=== PATIENT | female | born 1975 | race African-American/Black ===

== ENCOUNTER 2025-05-25 11:41 | Observation (INO) | payer OTHER ==
[2025-05-25] MEDS ORDERED: ACETAMINOPHEN INJECTION 100 ML ONE (13:28)
[2025-05-25] MEDS: SODIUM CHLORIDE 0.9% 500 ML INFUS.BAG IV ONE ×4 (13:57→19:34)
[2025-05-25] MEDS: ACETAMINOPHEN 1000 MG/100 ML BAG IVPB ONE (13:57)
[2025-05-25 14:01] LABS: ABSOLUTE IMMATURE GRANULOCYTES 0.01 x10^3/uL (0.0-0.031); BASOPHILS # 0.05 x10^3/uL (0.01-0.08); EOSINOPHIL % 0.0 % (0.7-5.8); EOSINOPHILS # 0.00 x10^3/uL (0.04-0.36); MCHC 33.7 g/dl (32.2-35.5); MEAN CELL VOLUME 101.9 fl (79.4-94.8); MEAN PLT VOLUME 9.6 fl (9.4-12.3); MONOCYTE # 0.45 x10^3/uL (0.24-0.86); MONOCYTE % 13.0 % (4.7-12.5); RDW 12.0 % (12.2-17.1)
[2025-05-25 14:20] LABS: GLUCOSE,RANDOM 62.0 mg/dL (74-106); TOT PROT 7.2 g/dl (6.4-8.2)
[2025-05-25 14:21] LABS: CO2 20.0 mmol/L (21-32)
[2025-05-25 14:23] LABS: ALK PHOS 146.0 U/L (40-150)
[2025-05-25 14:25] LABS: SGPT/ALT 41.0 U/L (0-55)
[2025-05-25 14:26] LABS: CREATININE 0.6 mg/dL (0.55-1.3); SGOT/AST 141.0 U/L (5-34)
[2025-05-25 16:38] LABS: BG HCT 42.0 % (32.4-45.2); VENOUS BASE EXCESS -2.7 mmol/L (-2-2); VENOUS O2 SATURATION 78.2 % (70-80); VENOUS PCO2 35.2 mmHg (38-52); VENOUS PH 7.402 (7.310-7.410)
[2025-05-25 17:08] LABS: GLUCOSE,RANDOM 156.0 mg/dL (74-106)
[2025-05-25 17:10] LABS: CO2 19.0 mmol/L (21-32)
[2025-05-25 17:14] LABS: CREATININE 0.7 mg/dL (0.55-1.3); LACTIC ACID 2.9 mmol/L (0.4-2.0)
[2025-05-25 18:10] LABS: EPI CELLS >36 /uL (0-25.1); HYALINE CASTS 6 /uL (0-3.1); URINE APPEARANCE CLOUDY; URINE BACTERIA 2611 /uL (0-1359); URINE BILIRUBIN NEGATIVE (NEGATIVE); URINE COLOR DK YELLOW; URINE GLUCOSE (UA) NEGATIVE (NEGATIVE); URINE KETONE 3+ (NEGATIVE); URINE LEUK ESTERASE TRACE (NEGATIVE); URINE NITRITE NEGATIVE (NEGATIVE); URINE PROTEIN 1+ (NEGATIVE); URINE RBC 35 /uL (0-23.9); URINE UROBILINOGEN 1.0 mg/dL (0.2-1.0); URINE WBC 50 /uL (0-25.8)
[2025-05-25 18:11] LABS: HCG,QUALITATIVE URINE Negative
[2025-05-25 18:57] LABS: LACTIC ACID 2.9 mmol/L (0.4-2.0)
[2025-05-25 22:07] LABS: LACTIC ACID 2.7 mmol/L (0.4-2.0)
[2025-05-25] MEDS ORDERED: ALBUTEROL SO4 0.083% IH SOL 2.5 MG/3 ML VIAL.NEB. NEB PRN (23:05)
[2025-05-25] MEDS ORDERED: ONDANSETRON 4 MG/2 ML VIAL IVPUSH PRN (23:05)
[2025-05-25] MEDS ORDERED: IBUPROFEN 600 MG TABLET (FP) PO PRN (23:05)
[2025-05-26] MEDS ORDERED: diazePAM CARPU-JECT 10 MG/2 ML DISP.SYRIN ONE (00:30)
[2025-05-26] MEDS: diazePAM CARPU-JECT 10 MG/2 ML DISP.SYRIN IVPUSH ONE (00:36)
[2025-05-26] MEDS: FOLIC ACID INJECTION - 1 MG, THIAMINE HCL 100 MG, MULTIVIT INJECTION ADULT 10 ML in SOD... IVPB ONE (00:37)
[2025-05-26 02:18] VITALS: BMI 28.5
[2025-05-26] MEDS: guaiFENesin/D-METHORPHAN HB 10 ML UNIT-DOSE CUPS PO PRN (02:27)
[2025-05-26] MEDS ORDERED: diazePAM CARPU-JECT 10 MG/2 ML DISP.SYRIN IVPUSH ONE (04:22)
[2025-05-26] MEDS: diphenhydrAMINE HCL 25 MG CAPSULE (FP) PO ONE (04:48)
[2025-05-26] MEDS ORDERED: LORazepam 2 MG/ML SDV VIAL IVPUSH PRN (04:49)
[2025-05-26] MEDS: LORazepam 2 MG/ML SDV VIAL IVPUSH ONE (05:17)
[2025-05-26 09:19] LABS: ABSOLUTE IMMATURE GRANULOCYTES 0.01 x10^3/uL (0.0-0.031); BASOPHILS # 0.03 x10^3/uL (0.01-0.08); EOSINOPHIL % 0.0 % (0.7-5.8); EOSINOPHILS # 0.00 x10^3/uL (0.04-0.36); MCHC 33.3 g/dl (32.2-35.5); MEAN CELL VOLUME 101.9 fl (79.4-94.8); MEAN PLT VOLUME 10.2 fl (9.4-12.3); MONOCYTE # 0.61 x10^3/uL (0.24-0.86); MONOCYTE % 16.2 % (4.7-12.5); RDW 11.8 % (12.2-17.1)
[2025-05-26] MEDS: ENOXAPARIN NA (PORCINE) 40 MG/0.4 ML DISP.SYRIN SQ SCH (09:55)
[2025-05-26] MEDS: PANTOPRAZOLE 40 MG TABLET PO SCH (09:56)
[2025-05-26 10:01] LABS: GLUCOSE,RANDOM 190.0 mg/dL (74-106); TOT PROT 6.3 g/dl (6.4-8.2)
[2025-05-26 10:02] LABS: CO2 24.0 mmol/L (21-32)
[2025-05-26 10:03] LABS: ALK PHOS 128.0 U/L (40-150)
[2025-05-26 10:06] LABS: SGOT/AST 100.0 U/L (5-34); SGPT/ALT 32.0 U/L (0-55)
[2025-05-26 10:07] LABS: CREATININE 0.58 mg/dL (0.55-1.3)
[2025-05-26 11:00] LABS: LACTIC ACID 2.3 mmol/L (0.4-2.0)
[2025-05-26 16:45] VITALS: BP 137/107; PULSE 100; RESP 17; TEMP 98.4
== END 2025-05-26 18:09 | disposition home or self-care (01) ==
LOC: JER 11:41 → JERBED 22:24 → J6S 05-26 01:32
PROVIDERS: ADMIT Hospitalist; ATTEND Internal Medicine
PROC: 3E03329 Introduction of Other Anti-infective into Peripheral Vein, Percutaneous Approach (ICD-10-PCS; principal; 2025-05-25)
PROC: 3E0337Z Introduction of Electrolytic and Water Balance Substance into Peripheral Vein, Percutaneous Approach (ICD-10-PCS; 2025-05-26)
PROC: 3E033GC Introduction of Other Therapeutic Substance into Peripheral Vein, Percutaneous Approach (ICD-10-PCS; 2025-05-26)
PROC: 3E013GC Introduction of Other Therapeutic Substance into Subcutaneous Tissue, Percutaneous Approach (ICD-10-PCS; 2025-05-26)
DX: J06.9 Acute upper respiratory infection, unspecified (principal); E87.20 Acidosis, unspecified; F10.988 Alcohol use, unspecified with other alcohol-induced disorder; I10 Essential (primary) hypertension; F17.200 Nicotine dependence, unspecified, uncomplicated; R19.7 Diarrhea, unspecified; R51.9 Headache, unspecified
CPT/HCPCS: 36415; 71260-TC; 74177-TC; 80048; 80053; 80307; 81003; 82010; 82803; 82962; 83605; 83735; 84703; 85025; 87086; 87637-QW; 93005; 93010; 99285-25; G0378; Q9967